=== PATIENT | male | born 1955 | race Caucasian/White ===

== ENCOUNTER 2019-03-25 15:55 | Emergency (ER) | payer OTHER ==
[~2019-03-25] VITALS: Ht 180.3 cm; Wt 81.7 kg
[2019-03-25 16:15] LABS: URINE BILIRUBIN NEGATIVE (Negative); URINE BLOOD NEGATIVE (Negative); URINE CLARITY CLEAR; URINE COLOR YELLOW; URINE GLUCOSE-RANDOM* NEGATIVE (Negative); URINE KETONES NEGATIVE (Negative); URINE LEUKOCYTES-REFLEX NEGATIVE (Negative); URINE NITRITE-REFLEX NEGATIVE (Negative); URINE PROTEIN (DIPSTICK) NEGATIVE (Negative); URINE UROBILINOGEN 0.2 E.U./dl (0.2-1.0)
[2019-03-25] MEDS ORDERED: TESSALON PERLE100 M1 PO (16:39)
[2019-03-25] MEDS ORDERED: FLUTICASONE PRO30 G1 TOP (16:39)
[2019-03-25] MEDS ORDERED: TELMISARTAN-HC1 EAC1 PO (16:40)
[2019-03-25] MEDS ORDERED: CALCIUM500 MG PO (16:40)
[2019-03-25] MEDS ORDERED: PRAVACHOL 20 MG20 M1 PO (16:40)
[2019-03-25] MEDS ORDERED: PROTONIX40 M2 PO (16:40)
[2019-03-25] MEDS ORDERED: CLARITIN10 M3 PO (16:40)
[2019-03-25] MEDS ORDERED: FISH OIL 1,0001 EAC9 PO (16:41)
[2019-03-25] MEDS ORDERED: MULTI VITAMIN1 EACH PO (16:41)
[2019-03-25] MEDS ORDERED: MELATONIN10 M3 PO (16:43)
[2019-03-25] MEDS ORDERED: PROBIOTIC1 EAC7 PO (16:43)
[2019-03-25] MEDS ORDERED: NIACIN500 MG PO (16:44)
[2019-03-25 16:54] LABS: ABSOLUTE NEUTROPHILS 3.7 thou/uL (1.4-8.2); BASOPHILS 0.8 % (0.0-2.0); EOSINOPHILS 3.2 % (0.0-3.0); HEMATOCRIT 44.5 % (42.0-52.0); HEMOGLOBIN 14.7 gm/dL (14.0-18.0); LYMPHOCYTES 20.9 % (24.0-44.0); MCH 30.7 pg (26.0-34.0); MCHC 33.1 g/dL (28.0-37.0); MCV 92.6 fL (80.0-100.0); MONOCYTES 11.7 % (1.0-8.0); PLATELET COUNT 229 thou/uL (150-400); POLYS 63.4 % (36.0-66.0); RBC 4.81 mil/uL (4.50-6.00); RDW 13.3 % (10.5-14.5); WBC 5.8 thou/uL (4.0-11.0)
[2019-03-25 17:03] LABS: CREATININE 1.6 mg/dL (0.7-1.3); POTASSIUM 4.2 mmol/L (3.5-5.1)
[2019-03-25 17:09] LABS: ALBUMIN 3.8 g/dL (3.4-5.0); TOTAL BILIRUBIN 0.3 mg/dL (<0.1-1.0); TOTAL PROTEIN 7.7 g/dL (6.4-8.2)
[2019-03-25] MEDS ORDERED: NORCO 5-325 TA1 EAC1 PO (18:07)
[2019-03-25] MEDS ORDERED: FLOMAX0.4 MG PO (18:07)
[2019-03-25] MEDS ORDERED: ONDANSETRON HCL4 M2 PO (18:07)
[2019-03-25 18:15] VITALS: BP 114/80
--- NOTE | 2019-03-26 08:07 | EKG ---
[place] [address] [facility] [email or web address] [address] ELECTROCARDIOGRAM REPORT Name: MANJEET HERRERA Room #: DEP ALAINA Real#: [id number] Admission: 03/25/19 Attend Phys: Discharge: 03/25/19 Date of : 51 Report #: [id number] THIS REPORT FOR: //name// [facility] ED Test Date: 2019-03-25 Test Time: 16:55:50 Pat Name: MANJEET HERRERA Department: Room: Gender: Die Mechanic: jngum : 1955 Requested By: Chirag Bates Order Number: [id number] MD: Sandor Islas Measurements Intervals [place] Rate: 55 P: 38 ND: 200 QRS: -18 QRSD: 95 T: -4 QT: 372 QTc: 356 Interpretive Statements Sinus rhythm Inferior infarct, old Lateral leads are also involved No previous ECG available for comparison Electronically Signed On 03-26-2019 8:07:25 CDT by Sandor Islas [email or web address] <ELECTRONICALLY SIGNED> By: Sandor Islas MD 03/26/19 0807 1655 1655 MD LENORE Love
== END 2019-03-25 18:15 | disposition home or self-care (01) ==
LOC: ER 15:55
PROVIDERS: Emergency Medicine
DX: N20.0 Calculus of kidney (principal); F17.290 Nicotine dependence, other tobacco product, uncomplicated; Z88.0 Allergy status to penicillin; Z87.442 Personal history of urinary calculi

== ENCOUNTER → 2019-05-06 | Outpatient (CLI) | payer OTHER ==
[~2019-05-06] MED LIST: ASA81BEC PO; CALCIUM500 MG PO; CLARITIN10 M3 PO; FISH OIL 1,0001 EAC9 PO; FLOMAX0.4 MG PO; FLONASE 0.05%50 MCG NASAL; FLUTICASONE PRO30 G1 TOP; KRILL OIL 1,001 EAC1 PO; MELATONIN10 M3 PO; MULTI VITAMIN1 EACH PO; NIACIN500 MG PO; NORCO 5-325 TA1 EAC1 PO; ONDANSETRON HCL4 M2 PO; PRAVACHOL 20 MG20 M1 PO; PROBIOTIC1 EAC7 PO; PROTONIX40 M2 PO; TELMISARTAN-HC1 EAC1 PO; TESSALON PERLE100 M1 PO
== END ==
LOC: NUC 09:05
DX: E21.3 Hyperparathyroidism, unspecified (principal)

== ENCOUNTER 2019-05-13 08:32 | Inpatient (IN) | payer OTHER ==
[~2019-05-13] VITALS: Ht 152.4 cm; Wt 82.1 kg
[2019-05-13 09:37] LABS: CREATININE 1.5 mg/dL (0.7-1.3)
[2019-05-13 09:51] VITALS: BP 114/75
[2019-05-13 16:04] VITALS: BP 160/89
--- NOTE | 2019-05-13 19:32 | NUR ---
PT ADMITED FROM OR. ALERT AND ORIENTED. VSS. SURGICAL INCISION IN THE NECK C/D/I. ICE PACK APPLIED. ORDERS NOTED. NO CONCERNS AT THIS TIME. WILL CONTINUE TO MONITOR.
[2019-05-13 19:44] VITALS: BP 135/76
[2019-05-14 00:02] VITALS: BP 135/78
[2019-05-14 04:44] VITALS: BP 129/88
--- NOTE | 2019-05-14 05:22 | NUR ---
patients cares were assumed at shift change. patient was assessed and med were passed. patient did sleep through the night. midnight tylenol not given due to he was sleeping. hourly rounds were done. the bed is in a low and locked position. the bed alarm is on.
[2019-05-14 06:03] LABS: ALBUMIN 3.2 g/dL (3.4-5.0); CALCIUM 10.8 mg/dL (8.5-10.1); CREATININE 1.5 mg/dL (0.7-1.3); MAGNESIUM 1.6 mg/dL (1.8-2.4); PHOSPHORUS 3.4 mg/dL (2.5-4.9); POTASSIUM 4.2 mmol/L (3.5-5.1)
[2019-05-14 07:19] VITALS: BP 121/94
--- NOTE | 2019-05-14 16:06 | PATH ---
[facility] [address] [place] [address] PATHOLOGY RPT PROCEDURE Name: MANJEET HERRERA Room #: 211-P ADM IN M.R.#: [id number] Admission: 05/13/19 Date of : 51 Discharge: Report #: [id number] Path Case #: [id number] [facility] Accession Number: [id number] . 01 Material submitted: . parathyroid gland - RIGHT SUPERIOR PARATHYROID - FS. Modifiers: right, superior . 02 Frozen section diagnosis: . FROZEN SECTION DIAGNOSIS (Aniyah Liang MD) . FSA1. Right superior parathyroid, excision: - Hypercellular parathyroid tissue, 4.0 grams. . These findings are discussed with Dr. Rui Montero in OR-5 at [facility] and a written report is placed in the patient's chart. . Frozen section performed at [facility], [address] [place] [address]. . FROZEN SECTION GROSS DESCRIPTION Specimen is received fresh from the OR labeled with the patient's name, and "right superior parathyroid", consists of a 4.0 gram oval spongy tissue measuring 3.8 x 2 x 0.5 cm. The capsule is shiny and smooth. It is inked black. Specimen is serially sectioned and a tiny portion is submitted for frozen section as FSA1, the frozen section remnant is submitted as A1. The remainder of the tissue is submitted for permanent sections only as A2 and A3. (IUV:joint machine operator; 05/13/2019) IZV/MBR . 02 Diagnosis: Parathyroid, right superior parathyroid, parathyroidectomy: - Consistent with a parathyroid adenoma, 4.0 grams. (IUV/db; 05/14/2019) LBQ 05/14/2019 1522 Local . 02 Electronically signed: . Aniyah Liang MD, Pathologist NPI- [id number] . 03 Gross description: . PLEASE SEE FROZEN SECTION GROSS DESCRIPTION. /MBR 05/13/2019 1605 Local . 02 Pathologist provided ICD-10: [address] [address] PATHOLOGY RPT PROCEDURE Name: MANJEET HERRERA Room #: 211-P [facility] IN .R.#: [id number] Admission: 05/13/19 Date of : 51 Discharge: Report #: [id number] Path Case #: [id number] D35.1 . 02 [facility] . [id number] Specimen Comment: A courtesy copy of this report has been sent to [phone] Specimen Comment: [phone], Specimen Comment: Report sent to , and Performed at: [address], [place], [place] [id number] MD Benito Edwards MD Phone: [phone] Performed at: [address] [id number] MD Aniyah Liang MD Phone: [phone] Performed at: [address], [place], [place] [id number] MD Benito Edwards MD Phone: [phone]
--- NOTE | 2019-05-14 16:50 | NUR ---
ASSESSMENT CHARTED. PT ALERT AND ORIENTED. VSS. REPORT HAVING THROAT PAIN BUT DENIED THE NEED FOR PAIN MED. SURGICAL INCISION DRESSING ON THE NECK C/D/I. TOLERATED REGULAR DIET WELL. SEEN BY DR PRABHAKAR. ORDERS GIVEN TO TRANSFER PT TO ROOM 403. REPORT CALLED IN TO THE NURSE. PT AND FAMILY NOTIFIED.
[2019-05-14 17:25] VITALS: BP 129/82
--- NOTE | 2019-05-14 18:03 | NUR ---
ASSUMED CARE OF PT AT 1700. VSS, AOX4, NO C/O PAIN AT THIS TIME. PT REFUSED SCHEDULED ACETAMINOPHEN AT 1800. PT IS UP AD USMAN, TOLERATING REGULAR DIET, R FOREARM IV IS PATENT WITH FLUIDS RUNNING. AT BEDSIDE, CALL LIGHT/PERSONAL ITEMS IN REACH. WILL CONTINUE TO MONITOR.
[2019-05-14 21:30] VITALS: BP 137/85
--- NOTE | 2019-05-15 01:35 | NUR ---
ASSUMED CARE OF PATIENT AT APPROX. 1999. ASSESSMENT CHARTED. MEDICATIONS GIVEN PER MAR. PATIENT IS A&OX4, VSS, DENIES PAIN BUT VOICES DISCOMFORT AROUND THROAT AREA. PATIENT GETS UP INDEPENDENTLY W IV POLE. HE IS STEADY ON HIS FEET. PATIENT HAS ADEQUATE APPETITE. PATIENT VOICED NO TROUBLE URINATING; FLOMAX TAKEN SCHEDULED. FAMILY IS CURRENTLY AT BEDSIDE. WILL BE SPENDNG NIGHT. PER DR. PRABHAKAR, PATIENT TO BE D/C'D ONCE CALCIUM LEVELS ARE STABLE. RENAL PANEL AND MG LABS ORDERED FOR AM. PATIENT DENIES ANY NEEDS AT THIS TIME. PATIENT CALLS PUT APPROPRIATELY. WILL CONTINUE TO MONITOR AND FOLLOW POC.
--- NOTE | 2019-05-15 01:43 | NUR ---
2100 LABS WERE DRAWN. CA++ LEVELS ARE 10.7. DR. PRABHAKAR NOTIFIED. PO CALCIUM TO BE CONTINUED AND AM LABS STILL TO BE DRAWN. PATIENT EDUCATED ON S/S OF HYPERCALCEMIA; AMS AND HEART PALPITATIONS AND INSTRUCTED TO CALL OUT IF NOT FEELING WELL. WILL CONTINUE TO MONITOR. MELATONIN AND BENADRYL ORDERED AND ADMINISTRED TO HELP W SLEEP.
[2019-05-15 04:37] VITALS: BP 136/84
[2019-05-15 05:51] LABS: ALBUMIN 2.9 g/dL (3.4-5.0); CALCIUM 9.7 mg/dL (8.5-10.1); CREATININE 1.5 mg/dL (0.7-1.3); MAGNESIUM 1.5 mg/dL (1.8-2.4); PHOSPHORUS 3.7 mg/dL (2.5-4.9); POTASSIUM 4.2 mmol/L (3.5-5.1)
[2019-05-15 07:23] VITALS: BP 140/87
[2019-05-15] MEDS ORDERED: OXYCODONE HCL 55 MG PO (09:17)
[2019-05-15] MEDS ORDERED: ACETAMINOPHEN325 M1 PO (09:18)
[2019-05-15] MEDS ORDERED: MIRALAX17 GM PO (09:19)
[2019-05-15] MEDS ORDERED: MAGNESIUM400 MG PO (09:19)
[2019-05-15] MEDS ORDERED: COLACE 100 MG100 MG PO (09:19)
[2019-05-15] MEDS ORDERED: TUMS200 MG PO (09:30)
--- NOTE | 2019-05-15 11:32 | HC ---
[facility] [address] [address] CONSULTATION Name: SHARONMANJEET Anila Room #: 403-P [facility] IN M.R.#: [id number] Admission: 05/13/19 Attend Phys: Rui Montero MD Discharge: Date of : 51 Report #: [id number] THIS REPORT FOR: //name// CC: Rui Gillette DATE OF SERVICE: 05/15/2019 CONSULTING PHYSICIAN: Dr. Rui Montero. REASON FOR CONSULTATION: 1. Primary hyperparathyroidism. 2. Hypocalcemia. HISTORY OF PRESENT ILLNESS: This is a 63-year-old male patient whose medical background is significant for multiple medical issues including hypertension, hypercalcemia and multiple occurrences of kidney stones. The patient presented to me in the outpatient setting over a month ago for the concern of hypercalcemia and it was impressive and that it was at least once recorded over 30 mg/dL raising concerns over the outlook of severe hypercalcemia. Further workup confirmed an outlook of primary hyperparathyroidism. Subsequently, the patient was imaged with a neck ultrasonography as well as with nuclear parathyroid sestamibi scanning. These these localized parathyroid adenoma in the right inferior position. The patient was admitted day before yesterday and had undergone a successful parathyroid adenoma resection uneventfully. I have seen him today one day postoperatively and the patient feels well, denies issues with nausea, vomiting, breathing difficulties. Muscle cramps or numbness. It is worth noting that the patient has had major difficulties with nephrolithiasis, which occurred multiple times over the past several months including very recently a few weeks ago. Also, the patient has hypertension. REVIEW OF SYSTEMS: CONSTITUTIONAL: Intermittent issues with fatigue, tiredness, but no fever, chills or body weight changes. HEENT: Negative for sinus pain, ear drainage. PULMONARY: Negative for shortness of breath, cough or hemoptysis. CARDIAC: Negative for chest pain, palpitations, syncope or presyncope. GASTROINTESTINAL: Noted for occasional abdominal discomfort, nausea, but no vomiting or major changes in bowel movement frequency. NEUROLOGY: Negative for loss of consciousness, seizure activity. [facility] [address] [place] [address] CONSULTATION Name: SHARONMANJEET Anila Room #: 403-P [facility] IN M.R.#: [id number] Admission: 05/13/19 Attend Phys: Rui Montero MD Discharge: Date of : 51 Report #: [id number] frequent headaches. PSYCHIATRIC: Negative for delusions, hallucinations. DERMATOLOGIC: Negative for skin rash, ulceration or other major abnormalities. Otherwise, review of systems noncontributory other than those mentioned in HPI. PAST MEDICAL HISTORY: Noted for: 1. Hypercalcemia. 2. Primary hyperparathyroidism. 3. Multiple episodes of nephrolithiasis. 4. Hyperlipidemia. 5. Benign prostatic hypertrophy. 6. Hypertension. 7. History of testicular cancer. 8. Allergic rhinitis. 9. Asthma. 10. GERD. OUTPATIENT MEDICATIONS: Include: 1. Fish oil. 2. Fluticasone. 3. Claritin. 4. Melatonin. 5. Pravastatin. 6. Flomax. 7. Micardis, hydrochlorothiazide. 8. Multivitamins. ALLERGIES: PENICILLIN. FAMILY HISTORY: Noncontributory. SOCIAL HISTORY: The patient denies use of tobacco, alcohol or illicit drugs. PHYSICAL EXAMINATION: GENERAL: This is a pleasant -Niuean male patient who is not in apparent pain or distress, lying comfortably in bed. VITAL SIGNS: Blood pressure is 140/87, heart rate is 56 beats per minute, respirations 20 per minute, temperature 37.1 degrees. HEENT: Anicteric sclerae. Intact extraocular motions. NECK: Supple, without JVD, carotid bruits or lymphadenopathy. Surgical wound is covered by dressing. CHEST: Clear to auscultation with good air entry bilaterally. No wheeze or crackles with resonant percussion noted over both lung meade. HEART: Regular rate and rhythm without murmurs or gallops. ABDOMEN: Soft and lax without tenderness or organomegaly, has active bowel sounds. [facility] [address] [place] [address] CONSULTATION Name: MANJEET HERRERA Room #: 403-P [facility] IN [facility]#: [id number] Admission: 05/13/19 Attend Phys: Rui Montero MD Discharge: Date of : 51 Report #: [id number] EXTREMITIES: Lower extremity exam is negative for ankle edema. The patient has good pulses bilaterally. NEUROLOGIC: Awake, alert and oriented to time, place and person. The remainder of his examination is nonfocal. PSYCH: Appropriate, pleasant, interactive. Normal mood and affect. LABORATORY DATA: These are obtained from his outpatient files and inpatient files as well. Sodium 141, potassium 4.2, chloride 107, CO2 of 26, anion gap 8, BUN 29, creatinine 1.5, AST 22, lipase 150, total bilirubin 0.3, calcium 9.7, following postoperative, preoperatively it was 10.7. There is no recording of 13.4 over the past several weeks, phosphorus 3.7, magnesium 1.5, alkaline phosphatase 68, total protein 7.7, albumin 2.9. EGFR 47. Troponin is negative, PTH was at 210. On 05/13/2019 in another recording was at 99.9 and then it dropped intraoperatively to 8.6. White blood count 5.8, hemoglobin 14.7, hematocrit 44.5, platelets 229. ASSESSMENT AND PLAN: 1. Primary hyperparathyroidism. As noted above, this diagnosis was made in the context of severe hypercalcemia and severe recurrent nephrolithiasis. The patient underwent localization studies, which confirmed this diagnosis. Furthermore, he had undergone a successful, uneventful. Thyroidectomy procedure yesterday with a rather convincing intraoperative PTH dropped as noted above. He has maintained normocalcemia following his surgery and his latest documented calcium was at 9.7 mg/dL. He does not have any symptoms of hypocalcemia at this point in time. I do not see any medical objection to the patient being released home later today. 2. Hypocalcemia. As a precaution following a parathyroidectomy procedure, one should monitor for clinical and laboratory evidence of hypocalcemia. The patient offers neither. He was educated at length about the possible symptoms of hypocalcemia and advised about the need to take calcium as needed, should that occur, which he expressed a good understanding of. 3. Hypertension. The patient's level of blood pressure control is adequate on his usual antihypertensive regimen, he is to continue with the same. 4. Hyperlipidemia. The patient is advised to maintain the same lipid-lowering therapy. I have reviewed the patient's clinical care notes, laboratory data, radiology [address] [address] CONSULTATION Name: MANJEET HERRERA Room #: 403-P ADM IN M.R.#: [id number] Admission: 05/13/19 Attend Phys: Rui Montero MD Discharge: Date of : 51 Report #: [id number] data both past and present both in the inpatient and the outpatient setting for over 35 minutes. I appreciate this consultation by Dr. Montero. <ELECTRONICALLY SIGNED> By: Bre Montano MD 05/15/19 1132 0922 0950 Bre Montano MD /nt
[2019-05-15 12:47] VITALS: BP 140/87
--- NOTE | 2019-05-15 15:16 | NUR ---
ASSUMED CARE OF PATIENT AT 0715, PATIENT ALERTAND ORIENTED X 4. UP AD USMAN IN HIS ROOM. PATIENT NOT A FALL RISK. PATIENT DENIES PAIN THIS AM, BUT AT NOON, HE TOOK SCHEDULED TYLENOL 650 MG PO, PAIN LEVEL 1. DR LIMON SAW THE PATIENT THIS AM, HE WILL DISCHARGE TO HOME TODAY. PATIENT HAS RIGHT FOREARM IV IN PLACE, WITH LR AT 125CC/HR. PATIENT HAS MAGNESIUM LEVEL 1.5, RECEIVED MAGNESIUM IVPB X 1 PRIOR TO DISCHARGE. PATIENT HAS DRESSING TO NECK AREA, C/D/I. AT BEDSIDE. THIS RN REMOVED RIGHT FOREARM IV PRIOR TO DISCHARGE. THIS RN WENT OVER ALL DISCHARGE PAPERWORK AND ALL PERSONAL BELONGINGS SENT WITH THE PATIENT.
== END 2019-05-15 15:26 | disposition home or self-care (01) | DRG 627 ==
LOC: 2N 08:32 → TBA 08:32 → PRE 12:38 → 2N 15:40 → 4N 05-14 16:53 → ENTRNSPT 05-15 13:55 → 4N 05-15 15:26
PROVIDERS: ADMIT Surgery
PROC: 0GBL0ZZ Excision of Right Superior Parathyroid Gland, Open Approach (ICD-10-PCS; principal; 2019-05-13)
DX: E21.0 Primary hyperparathyroidism (principal); D35.1 Benign neoplasm of parathyroid gland; E78.5 Hyperlipidemia, unspecified; I10 Essential (primary) hypertension; N40.0 Benign prostatic hyperplasia without lower urinary tract symptoms; J45.909 Unspecified asthma, uncomplicated; K21.9 Gastro-esophageal reflux disease without esophagitis; Z85.47 Personal history of malignant neoplasm of testis; Z87.442 Personal history of urinary calculi; Z88.0 Allergy status to penicillin; Z79.899 Other long term (current) drug therapy
CPT/HCPCS: 10081; 10091; 50010; 50101; 50386; 50417; 52190; 56524; 56526; 56760; 62110; 62900; 70005